=== PATIENT | male | born 1950 ===

== ENCOUNTER 2017-03-24 08:10 | Outpatient (CLI) | payer OTHER ==
--- NOTE | 2017-03-24 09:14 | RAD ---
LEFT KNEE 4 VIEWS: HISTORY Pain. COMPARISON: None. FINDINGS: No acute fracture or malalignment. Mild narrowing of the upper compartment. Mild medial compartment osteophyte formation. Small inferior patellar osteophytes. IMPRESSION: Mild medial compartment osteoarthritic disease. POS: [facility]
== END 2017-03-24 08:11 | disposition home or self-care (01) ==
LOC: RAD-FRANK 08:10
PROVIDERS: ATTEND Internal Medicine
DX: M25.562 Pain in left knee (principal); M17.12 Unilateral primary osteoarthritis, left knee